=== PATIENT | male | born 2005 | race Two or more races ===

== ENCOUNTER → 2025-03-09 | Outpatient (CLI) | payer BC, SELFPAY ==
--- NOTE | 2025-03-09 08:30 | XR_ITS ---
Exam: MRI knee without contrast, left Date and time of exam: March 09, 2025, 1004 hours INDICATIONS: Medial posterior knee pain 2 months Technique: Multiple axial, coronal, and sagittal sections on the knee have been obtained. T2-Weighted sagittal, fat-suppressed images, TR 3,500, TE 62, T2 weighted coronal fat-saturated images, TR 3,500, TE 62 Proton density sagittal sections, TR 1800, TE 31. T-1 weighted coronal images, TR 524, TE 13.0 Findings: Medial meniscus anterior horn intact. Medial meniscus, body meniscocapsular separation Posterior horn medial meniscus peripheral horizontal linear tear. Lateral meniscus anterior horn horizontal linear tear communicating with inferior articular surface Lateral meniscus, body horizontal linear tear Posterior horn lateral meniscus tiny vertical tear near the inner margin Anterior cruciate ligament complete tear Posterior cruciate ligament appears intact. Knee effusion is moderate. Quadriceps and patellar tendons appear intact. There is no evidence of tendinosis. Inflammatory change or fracture of Hoffa's fat pad is not seen. Medial patellar facet demonstrates mild thinning. Lateral patellar facet cartilage demonstrates mild thinning. Trochlear cartilage demonstrates mild thinning. Marrow signal increased about the lateral joint space. Medial collateral ligament appears intact. No meniscocapsular separation is seen. Illiotibial band and fibular collateral ligament are intact. Biceps femoris tendons appear intact. Medial femoral condylar articular cartilage demonstrates mild thinning. Lateral femoral condylar articular cartilage demonstrates mild thinning. Tibial plateau cartilage demonstrates mild thinning. Impression: Medial and lateral meniscus tears Meniscocapsular separation body of the medial meniscus Complete tear anterior cruciate ligament
== END | disposition home or self-care (01) ==
LOC: SMRI 08:06
PROVIDERS: PCP Family Medicine; Referring Provider Physician Assistant; Visit Provider Physician Assistant
DX: S83.282A Other tear of lateral meniscus, current injury, left knee, initial encounter (principal); S83.242A Other tear of medial meniscus, current injury, left knee, initial encounter; S83.195A Other dislocation of left knee, initial encounter; X58.XXXA Exposure to other specified factors, initial encounter
CPT/HCPCS: 73721